=== PATIENT | male | born 1955 | race Two or more races ===

== ENCOUNTER → 2020-01-30 | Outpatient (CLI) | payer OTHER | END | disposition home or self-care (01) | LOC: CFH 09:14 | PROVIDERS: ATTEND Internal Medicine Nephrology | DX: N26.1 Atrophy of kidney (terminal) (principal); I71.4 Abdominal aortic aneurysm, without rupture; N18.4 Chronic kidney disease, stage 4 (severe) | CPT/HCPCS: 76770 ==